=== PATIENT | male | born 1965 | race Caucasian/White ===

== ENCOUNTER → 2023-12-31 | Outpatient (CLI) | payer OTHER, SELFPAY ==
[2023-12-31 15:37] LABS: Absolute Lymphocyte Count 1.62 X10^3/uL (0.83-4.51); Absolute Neutrophil Count 3.9 X10^3/uL (2.0-7.7); Basophil# 0.03 X10^3/uL; Basophil% 0.5 % (0-1); Eosinophil# 0.12 X10^3/uL; Eosinophils% 1.8 % (0-5); Hematocrit 45.4 % (40-54); Hemoglobin 15.2 g/dL (13.0-16.5); Lymphocyte # 1.62 X10^3/ul (0.83-4.51); Lymphocyte % 24.5 % (19-41); Mean Corp Hgb Conc 33.5 g/dL (32-36); Mean Corpuscular Hgb 31.8 pg (27.0-32.0); Mean Platelet Vol. 11.5 fl (6.2-12.0); Monocyte# 0.92 X10^3/uL; Monocyte% 13.9 % (0-10); NRBC Flagged by Analyzer 0 % (0-5); Neutrophil # 3.91 X10^3/uL (2.7-7.7); Platelet Count 181 K/mm3 (150-450); RBC Distribution Width CV 12.4 % (11.6-14.6); RBC Distribution Width SD 43.8 fl (35.1-43.9); Red Blood Count 4.78 M/mm3 (4.6-6.2); White Blood Count 6.6 K/mm3 (4.4-11.0)
[2023-12-31 19:17] LABS: ALB/GLOB Ratio 1.4 RATIO (0.9-2.4); AST(SGOT) 29 U/L (15-37); Alanine Aminotransfer ALT/SGPT 72 U/L (16-61); Albumin, Serum 3.9 g/dL (3.2-5.0); Alkaline Phosphatase 64 U/L (45-117); Anion Gap 6 (5-15); BUN 19 mg/dL (7-18); BUN/Creat Ratio 20.5 RATIO (10-20); CRP < 2.90 mg/L (0.0-3.0); Calcium,Total 9.2 mg/dL (8.5-10.1); Chloride 108 mmol/L (98-107); Creatinine, Serum 0.93 mg/dL (0.70-1.30); EST Glomerular Filtration Rate 89 mL/min (>60); Est Glom Filt Rate - Afr Amer 107 mL/min (>60); Globulin 2.7 g/dL (2.2-4.2); Glucose 94 mg/dL (74-106); Potassium 4.3 mmol/L (3.5-5.1); Protein, Total 6.6 g/dL (6.4-8.2); Rheumatoid Factor < 10.0 IU/mL (<15); Sodium Level 141 mmol/L (136-145)
[2023-12-31 19:47] LABS: Erythrocyte Sedimentation Rate < 1 mm/hr (0-20)
[2023-12-31 19:48] LABS: Hepatitis B Surface Antibody Non-Reactive; Hepatitis B Surface Antigen Non-Reactive (Nonreactive); Hepatitis C Antibody Non-Reactive (Nonreactive)
--- OUTSIDE RECORDS SUMMARY | 2023-12-31 23:09 | XMS RPT_ITS | CCD ---
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 Name Role Phone Lily Osman Admitting Unavailable Lily Osman Attending Unavailable Lily Osman Primary Care Unavailable Lily Osman Admitting Unavailable Lily Osman Attending Unavailable Lily Osman Primary Care Unavailable Lily Osman Admitting Unavailable Lily Osman Attending Unavailable Lily Osman Primary Care Unavailable Lily Osman Unavailable Unavailable Lily Osman Unavailable Unavailable Lily Osman Unavailable Unavailable Lily Osman Unavailable Unavailable None, No PCP Unavailable Unavailable LILY OSMAN Admitting Unavailable FAITH MARADIAGA Attending Unavailable LILY OSMAN Referring Unavailable LILY OSMAN Primary Care Unavailable FAITH MARADIAGA Admitting Unavailable FAITH MARADIAGA Referring Unavailable LILY OSMAN Primary Care Unavailable FAITH MARADIAGA Attending Unavailable LILY OSMAN Primary Care Unavailable Lily Osman Primary Care Provider LILY OSMAN Primary Care Unavailable ALLY WASHINGTON Referring Unavailable JADA SILVA Attending Unavailable JADA SILVA Attending Unavailable JADA SILVA Referring Unavailable LILY OSMAN Primary Care Unavailable Lily Osman Primary Care Provider Kelly Arias Unavailable Unavailable Lily Osman Unavailable Unavailable Unavailable Unavailable Unavailable Dr. Lily Osman Referring Unavailable Dr. Jet Osmanie Primary Care Unavailable Niko, Dr. Becerril Attending Unavailable Niko, Dr. Becerril Primary Care Unavailable Niko, Dr. Becerril Attending Unavailable Niko, Dr. Becerril Referring Unavailable Niko, Dr. Becerril Referring Unavailable Niko, Dr. Becerril Primary Care Unavailable Niko, Dr. Becerril Attending Unavailable Niko, Dr. Becerril Referring Unavailable Niko, Dr. Becerril Primary Care Unavailable Niko, Dr. Becerril Attending Unavailable Niko, Dr. Lily Levy Primary Care Unavail able Niko, Dr. Lily Levy Attending Unavail able Niko, Dr. Lily Levy Attending Unavail able Niko, Dr. Lily Levy Primary Care Unavail able Niko, Dr. Lily Levy Attending Unavail able Niko, Dr. Lily Levy Primary Care Unavail glen Osman MD, Lily Hare Unavailable Lily Osman MD Primary Care Provider LILY OSMAN Attending LILY Rey Primary Care LILY Rey Attending LILY Rey Primary Care Unavailable LILY OSMAN Referring LILY Rey Primary Care LILY Rey Primary Care LILY Rey Primary Care Unavailable Medications Current Medications Medication Drug Class(es) Dates Sig (Normalized) Sig (Original) albuterol 90 mcg/actuation inhaler (4 sources) Start: 06-02-2020 albuterol 90 mcg/actuation inhaler INHALE 2 PUFFS BY MOUTH EVERY 4 6 HOURS NEEDED 0 06/02/2020 Active DOCOSAHEXANOIC ACID/EPA (FISH OIL ORAL) (5 sources) DOCOSAHEXANOIC ACID/EPA (FISH OIL ORAL) Take by mouth. 0 Active Fish Oils (2 sources) fish oil (Roggen- 3) 60-90-500 mg capsule Fish Oil OIL Refills: 0 Active 0 Active ibuprofen 200 mg oral capsule (20 sources) Nonsteroidal Anti-inflammatory Drug ibuprofen (Motrin) capsule Take by mouth. 0 Active Completed/Discontinued Medications Medication Drug Class(es) Dates Sig (Normalized) Sig (Original) [id number] actuat albuterol 0.09 mg/actuat metered dose inhaler (17 sources) beta2-Adrenergic Agonist Start: 02-04-2020 take 2 puff(s) by mouth every four to six hours as needed Albuterol Sulfate HFA 108 (90 Base) MCG/ACT Inhalation Aerosol Solution INHALE 2 PUFFS BY MOUTH EVERY 4-6 HOURS NEEDED Quantity: 1 Refills: 4 Ordered: 13-Apr-2021 Lily Osman MD Start : 04-Feb-2020 Active Problems Active Problems Problem Classification Problem Date Documented Date Episodic/Chronic Anxiety disorders (7 sources) Anxiety; Translations: [Other anxiety states] Chronic Esophageal disorders (20 sources) Gastroesophageal reflux disease; Translations: [Esophageal reflux] Onset: 3 03-20-2023 Chronic Essential hypertension (20 sources) Hypertensive disorder; Translations: [Unspecified essential hypertension] Onset: 3 03-20-2023 Chronic Genitourinary symptoms and ill-defined conditions (20 sources) H/O: urinary disease; Translations: [Personal history of other specified urinary system disorders] Episodic Immunizations and screening for infectious disease (20 sources) Patient encounter status; Translations: [Other specified vaccination] Episodic Osteoarthritis (1 source) Osteoarthritis of right knee joint; Translations: [Primary osteoarthritis of right knee] Other connective tissue disease (6 sources) Lateral epicondylitis of right humerus; Translations: [Lateral epicondylitis] Episodic Other liver diseases (8 sources) Steatosis of liver; Translations: [Other chronic nonalcoholic liver disease] Onset: 3 03-20-2023 Chronic Other liver diseases (2 sources) Fatty (change of) liver, not elsewhere classified; Translations: [Fatty (change of) liver, not elsewhere classified] Onset: 3 Chronic Other non-traumatic joint disorders (5 sources) Knee pain; Translations: [Chronic pain of right knee] Episodic Other non-traumatic joint disorders (2 sources) Metacarpophalangeal joint pain; Translations: [Pain in joints of right hand] 09-18-2023 Episodic Other non-traumatic joint disorders (4 sources) Pain in joints of right hand; Translations: [Pain in joints of right hand] Onset: 3 Episodic Other non-traumatic joint disorders (4 sources) Pain in joints of left hand; Translations: [Pain in joints of left hand] Onset: 3 Episodic Other non-traumatic joint disorders (1 source) Pain in right knee; Translations: [Right knee pain, unspecified chronicity] Other nutritional; endocrine; and metabolic disorders (18 sources) Obesity; Translations: [Obesity, unspecified] Chronic Other upper respiratory disease (20 sources) Allergic rhinitis; Translations: [Allergic rhinitis, cause unspecified] Onset: 3 03-20-2023 Chronic Other upper respiratory disease (1 source) Seasonal allergic rhinitis; Translations: [Other allergic rhinitis] 03-20-2023 Chronic Residual codes; unclassified (20 sources) Sleep apnea; Translations: [Unspecified sleep apnea] Onset: 3 03-20-2023 Chronic Residual codes; unclassified (20 sources) At risk of heart disease; Translations: [Other specified conditions influencing health status] Episodic Residual codes; unclassified (1 source) Statin declined; Translations: [Procedure and treatment not carried out because of patient's decision for unspecified reasons] 09-18-2023 Episodic Unclassified (1 source) Acute tear of medial meniscus of right knee; Translations: [Acute medial meniscus tear of right knee, initial encounter] Unclassified (5 sources) Chronic pain of right upper limb; Translations: [Chronic right shoulder pain] Onset: 7 01-25-2017 Unclassified (2 sources) Annual Exam; Translations: [Annual Exam] Onset: 3 Past or Other Problems Problem Classification Problem Date Documented Date Episodic/Chronic Abdominal hernia (20 sources) Hiatal hernia; Translations: [Umbilical hernia] Onset: 03-20-2023 03-20-2023 Episodic Cardiac dysrhythmias (10 sources) Palpitations; Translations: [Palpitations] Onset: 03-22-2022 Resolved: 09-18-2023 Episodic Other and unspecified benign neoplasm (20 sources) History of polyp of colon; Translations: [Personal history of colonic polyps] Onset: 03-20-2023 03-20-2023 Episodic Other lower respiratory disease (2 sources) Chronic cough; Translations: [Chronic cough] Episodic Other lower respiratory disease (11 sources) Nodule of lung; Translations: [Solitary pulmonary nodule] Onset: 03-20-2023 Resolved: 09-18-2023 03-20-2023 Episodic Other lower respiratory disease (4 sources) Solitary pulmonary nodule; Translations: [Solitary pulmonary nodule] Onset: 04-26-2022 Episodic Other non-traumatic joint disorders (2 sources) Chronic pain of right upper limb; Translations: [Pain in right shoulder] Onset: 01-25-2017 Resolved: 09-18-2023 03-20-2023 Episodic Spondylosis; intervertebral disc disorders; other back problems (2 sources) Herniation of nucleus pulposus of lumbar intervertebral disc; Translations: [Other intervertebral disc displacement, lumbar region] Onset: 10-15-2011 Resolved: 09-18-2023 03-20-2023 Chronic Spondylosis; intervertebral disc disorders; other back problems (20 sources) Chronic low back pain; Translations: [Lumbago] Onset: 10-15-2011 Resolved: 09-18-2023 03-20-2023 Episodic Unclassified (4 sources) Patient encounter status; Translations: [Encounter for colonoscopy in patient with family history of colon cancer] Unclassified (2 sources) Onset: 03-20-2023 03-20-2023 NEGATED: Highlighted row has not occurred!Residual codes; unclassified (20 sources) Disease Episodic Results Test Name Value Interpretation Reference Range Facil ity Vital Signs Date Time Vital Sign Value Performing Clinician Facility 09-18-2023 10:44-0500 Diastolic blood pressure 80 mm[Hg] Lily Osman MD Work Phone: [facility] 09-18-2023 10:44-0500 Systolic blood pressure 130 mm[Hg] Lily Osman MD Work Phone: [facility] 09-18-2023 10:12-0500 Body height 177.8 cm Lily Osman MD Work Phone: [facility] 09-18-2023 10:12-0500 Body mass index (BMI) [Ratio] 32 kg/m2 Lily Osman MD Work Phone: [facility] 09-18-2023 10:12-0500 Body weight 101.15 kg Lily Osman MD Work Phone: [facility] 09-18-2023 10:12-0500 Heart rate 76 /min Lily Osman MD Work Phone: [facility] 03-20-2023 09:58-0400 Body height 177.8 cm Lily Osman MD Work Phone: [facility] 03-20-2023 09:58-0400 Body mass index (BMI) [Ratio] 31.42 kg/m2 Lily Osman MD Work Phone: [facility] 03-20-2023 09:58-0400 Body weight 99.34 kg Lily Osman MD Work Phone: [facility] 03-20-2023 09:58-0400 Diastolic blood pressure 88 mm[Hg] Lily Osman MD Work Phone: [facility] 03-20-2023 09:58-0400 Heart rate 78 /min Lily Osman MD Work Phone: [facility] 03-20-2023 09:58-0400 SaO2% (BldA) [Mass fraction] 97 % Lily Osman MD Work Phone: [facility] 03-20-2023 09:58-0400 Systolic blood pressure 130 mm[Hg] Lily Osman MD Work Phone: [facility] 09-19-2022 09:10-0500 Body height 177.8 cm Lily Osman Work Phone: [facility] Work Phone: 09-19-2022 09:10-0500 Body mass index (BMI) [Ratio] 31.45 kg/m2 Lily Osman Work Phone: [facility] Work Phone: 09-19-2022 09:10-0500 Body surface area Derived from formula 2.17 m2 Lily Osman Work Phone: [facility] Work Phone: 09-19-2022 09:10-0500 Body weight 99.42 kg Lily Osman Work Phone: [facility] Work Phone: 09-19-2022 09:10-0500 Diastolic blood pressure 80 mm[Hg] Lily Osman Work Phone: [facility] Work Phone: 09-19-2022 09:10-0500 Heart rate 72 /min Lily Osman Work Phone: [facility] Work Phone: 09-19-2022 09:10-0500 Systolic blood pressure 132 mm[Hg] Lily Osman Work Phone: [facility] Work Phone: 03-21-2022 09:07-0400 Body height 177.8 cm Lily Osman Work Phone: [facility] 205 DO Work Phone: 03-21-2022 09:07-0400 Body mass index (BMI) [Ratio] 30.9 kg/m2 Lily Osman Work Phone: [facility] 205 DO Work Phone: 03-21-2022 09:07-0400 Body surface area Derived from formula 2.15 m2 Lily Osman Work Phone: [facility] 205 DO Work Phone: 03-21-2022 09:07-0400 Body weight 97.7 kg Lily Osman Work Phone: [facility] 205 DO Work Phone: 03-21-2022 09:07-0400 Diastolic blood pressure 72 mm[Hg] Lily Osman Work Phone: [facility] 205 DO Work Phone: 03-21-2022 09:07-0400 Heart rate 68 /min Lily Osman Work Phone: [facility] 205 DO Work Phone: 03-21-2022 09:07-0400 Systolic blood pressure 124 mm[Hg] Lily Osman Work Phone: [facility] 205 DO Work Phone: 11-21-2021 13:14-0500 Body height 177.8 cm Lily Osman Work Phone: [facility] Work Phone: 11-21-2021 13:14-0500 Body mass index (BMI) [Ratio] 31.92 kg/m2 Lily Osman Work Phone: [facility] Work Phone: 11-21-2021 13:14-0500 Body surface area Derived from formula 2.18 m2 Lily Osman Work Phone: [facility] Work Phone: 11-21-2021 13:14-0500 Body temperature 97.4 [degF] Lily Osman Work Phone: [facility] Work Phone: 11-21-2021 13:14-0500 Body weight 100.9 kg Lily Osman Work Phone: [facility] Work Phone: 11-21-2021 13:14-0500 Diastolic blood pressure 80 mm[Hg] Lily Osman Work Phone: [facility] Work Phone: 11-21-2021 13:14-0500 Heart rate 82 /min Lily Osman Work Phone: [facility] Work Phone: 11-21-2021 13:14-0500 SaO2% (BldA) [Mass fraction] 96 % Lily Osman Work Phone: [facility] Work Phone: 11-21-2021 13:14-0500 Systolic blood pressure 118 mm[Hg] Lily Osman Work Phone: [facility] Work Phone: 09-20-2021 08:56-0500 Systolic blood pressure 136 mm[Hg] Lily Osman Work Phone: [facility] 205 DO Work Phone: 09-20-2021 08:45-0500 Body height 177.8 cm Lily Osman Work Phone: [facility] 205 DO Work Phone: 09-20-2021 08:45-0500 Body mass index (BMI) [Ratio] 31.71 kg/m2 Lily Osman Work Phone: [facility] 205 DO Work Phone: 09-20-2021 08:45-0500 Body surface area Derived from formula 2.18 m2 Lily Osman Work Phone: [facility] 205 DO Work Phone: 09-20-2021 08:45-0500 Body temperature 96.9 [degF] Lily Osman Work Phone: [facility] 205 DO Work Phone: 09-20-2021 08:45-0500 Body weight 100.25 kg Lily Osman Work Phone: [facility] 205 DO Work Phone: 09-20-2021 08:45-0500 Diastolic blood pressure 86 mm[Hg] [facility] DO Work Phone: 09-20-2021 08:45-0500 Heart rate 60 /min Lily Osman Work Phone: [facility] 205 DO Work Phone: 09-20-2021 08:45-0500 Systolic blood pressure 136 mm[Hg] Lily Osman Work Phone: [facility] 205 DO Work Phone: 03-15-2021 11:49-0400 Body height 177.8 cm Lily Osman Work Phone: [facility] 205 DO Work Phone: 03-15-2021 11:49-0400 Body mass index (BMI) [Ratio] 31.6 kg/m2 Lily Osman Work Phone: [facility] 205 DO Work Phone: 03-15-2021 11:49-0400 Body surface area Derived from formula 2.17 m2 Lily Osman Work Phone: [facility] 205 DO Work Phone: 03-15-2021 11:49-0400 Body temperature 97.2 [degF] Lily Osman Work Phone: [facility] 205 DO Work Phone: 03-15-2021 11:49-0400 Body weight 99.91 kg Lily Osman Work Phone: [facility] 205 DO Work Phone: 03-15-2021 11:49-0400 Diastolic blood pressure 82 mm[Hg] Lily Osman Work Phone: [facility] 205 DO Work Phone: 03-15-2021 11:49-0400 Heart rate 68 /min Lily Osman Work Phone: [facility] 205 DO Work Phone: 03-15-2021 11:49-0400 Systolic blood pressure 130 mm[Hg] Lily Osman Work Phone: [facility] 205 DO Work Phone: 09-21-2020 13:01-0500 BMI (Body Mass Index) 30.46 kg/m2 Kellydipika Arias [facility] Work Phone: 09-21-2020 13:01-0500 Body weight 96.28 kg Kellydipika Islast [facility] Work Phone: 09-21-2020 13:01-0500 BP Diastolic 82 mm[Hg] Kelly Gahlawat [facility] Work Phone: 09-21-2020 13:01-0500 BP Systolic 166 mm[Hg] Klely Gahlawat [facility] Work Phone: 09-21-2020 13:01-0500 BSA (Body Surface Area) 2.14 m2 Kelly Deepawat [facility] Work Phone: 09-21-2020 13:01-0500 Height 177.8 cm Kelly Maximilianohlawat [facility] Work Phone: 09-21-2020 13:01-0500 Pulse (Heart Rate) 75 /min Kellydipika Arias [facility] Work Phone: 09-21-2020 13:01-0500 Pulse Oximetry 98 % Kellydipika Islast [facility] Work Phone: 09-05-2020 12:36-0500 BMI (Body Mass Index) 33.53 kg/m2 [facility] Work Phone: 09-05-2020 12:36-0500 Body Temperature 96.8 [degF] [facility] Work Phone: 09-05-2020 12:36-0500 Body weight 97.1 kg Kelly [facility] Work Phone: 09-05-2020 12:36-0500 BP Diastolic 80 mm[Hg] Kelly [facility]as [facility] Work Phone: Encounters Encounter Date Encounter Type Care Provider Facility Start: 09-18-2023 End: 09-19-2023 ambulatory LILY OSMAN [facility] Ambulatory Start: 09-18-2023 End: 09-18-2023 Office outpatient visit 25 minutes Lily Osman MD Work Phone: [facility] Procedures Date Procedure Procedure Detail Performing Clinician Start: 09-18-2023 JERED WITHOUT REFLEX ALLYN LILY OSMAN Start: 09-18-2023 C-reactive protein LILY OSMAN Start: 09-18-2023 RHEUMATOID FACTOR LILY OSMAN Start: 09-18-2023 XR HAND RIGHT 3+ VIEWS LILY OSMAN Start: 09-18-2023 XR HAND LEFT 3+ VIEWS LILY OSMAN Start: 09-10-2023 ALBUMIN, URINE RANDOM LILY OSMAN Start: 09-10-2023 MICROSCOPIC ONLY, URINE LILY OSMAN Start: 09-10-2023 CBC W Auto Differential panel - Blood LILY OSMAN Start: 09-10-2023 Comprehensive metabolic 2000 panel - Serum or Plasma LILY OSMAN Start: 09-10-2023 Hemoglobin A1c/Hemoglobin.total in Blood LILY OSMAN Start: 09-10-2023 Lipid panel LILY OSMAN Start: 09-10-2023 TESTOSTERONE,FREE AND TOTAL LILY OSMAN Start: 09-10-2023 TSH WITH REFLEX TO FREE T4 IF ABNORMAL LILY OSMAN Start: 09-10-2023 Lipid 1996 panel - Serum or Plasma Lily Osman MD Work Phone: Start: 11-22-2022 Lipid 1996 panel - Serum or Plasma Lily Osman MD Work Phone: Start: 10-07-2020 Mri any jt lower extrem w/o contrast matrl External Transcribed Start: 10-05-2020 Colonoscopy Lily Osman MD Work Phone: Start: 05-30-2020 Arthrocentesis Faith Maradiaga Work Phone: Start: 05-05-2020 Xray Knee Complete 4 or more View Lily Osman Colonoscopy Lily Osman Esophagogastroduodenoscopy Dominic Osman Repair of shoulder Lily campbell Repair of umbilical hernia Dominic Osman Work Phone: Vasectomy Lily Osman Plan of Treatment Date Care Activity Detail Author Start: 10-05-2030 Screening for malignant neoplasm of colon [facility] Start: 09-10-2028 Lipid panel Lipid Panel [facility] Start: 09-11-2027 Lipid panel Lipid Panel [facility] Start: 03-18-2024 End: 09-18-2024 Basic metabolic 2000 panel - Serum or Plasma Basic Metabolic Panel Lab Routine Primary hypertension Expected: 03/18/2024 (Approximate), Expires: 09/18/2024 [facility] Work Phone: Immunizations Immunization Date Immunization Notes Care Provider Nhaid motta 09-05-2020 influenza, injectabl e, quadrivalent, preservative free; Translations: [Flulaval Quadrivalent 0.5 ML Intramuscular Suspension Prefilled Syringe] Kelly Arias [facility] Work Phone: Payers Date Payer Category Payer Private Health Insurance [id number] 2019 Private Health Insurance [id number] 2019 Private Health Insurance [id number] 2019 Private Health Insurance [employer] OPEN ACCESS MANAGED CHOICE xxxxxxxxxx 2019-Present xxxxxxxxxx [id number] 2018 Private Health Insurance 1965 Unknown [id number] [id number] .717 1964 Unknown [id number] [id number] .717 1964 Unknown [id number] 2.16840.1.025761.3.579.2 .71 1964 Unknown [id number] 2.16.840.1.920185.3.579.2 .903 1964 Unknown [id number] 2.840.1.129955.3.579.2 .90 1964 Unknown [id number] 2.840.1.970971.3.579.2 .90 1964 Unknown [id number] 2.840.1.053381.3.579.2 .1964 Unknown [id number] 2.840.1.709130.3.579.2 .903 1964 Unknown [id number] 2.840.1.124433.3.579.2 .356 1964 Unknown [id number] 2.840.1.711053.3.579.2 .356 1964 Unknown [id number] 2.840.1.872930.3.579.2 .356 1964 Unknown [id number] 2.16840.1.526055.3.579.2 .356 1964 Unknown [id number] 2.16840.1.550134.3.579.2 .1069 1964 Unknown [id number] 2.16840.1.938836.3.579.2 .1069 1964 Unknown [id number] 2.16840.1.031559.3.579.2 .1069 1964 Unknown [id number] 2.16840.1.442490.3.579.2 .1244 1964 Unknown [id number] 2.16.840.1.120722.3.579.2 .1244 1964 Unknown [id number] 2.16.840.1.125266.3.579.2 .1243 1964 Unknown [id number] 2.16.840.1.933092.3.579.2 .1243 1964 Unknown [id number] 2.16.840.1.942055.3.579.2 .1245 1964 Unknown [id number] [id number] .1245 Unknown Social History Date Type Detail Facility Assertion Unknown if ever smoked [facility] Work Phone: Start: 05-30-2020 End: 06-29-2020 Tobacco smoking status OKIS Former smoker [facility] Start: 06-29-2020 Tobacco use and exposure Never used [facility] Start: 05-30-2020 End: 06-29-2020 Alcohol intake Current drinker of alcohol (finding) [facility] Start: 1965 Sex Assigned At Not on file [facility] Start: 03-10-2023 End: 09-18-2023 Exposure to SARS-CoV-2 (event) Not sure [facility] Start: 03-20-2023 End: 09-18-2023 Does not have living will Does not have living will [facility] 205 DO Work Phone: Start: 03-20-2023 Tobacco smoking status NHIS Never smoked tobacco [facility] Work Phone: Start: 03-20-2023 Tobacco use and exposure Former smokeless tobacco user [facility] Work Phone: Start: 03-20-2023 End: 09-18-2023 Tobacco use panel [facility] Work Phone: NEGATED: Highlighted row - - [facility] Work Phone: Medical Equipment Procedure Code Equipment Code Equipment Origin al Text Equipment Identifier Dates Patch, Mesh, Mar beth, 3 X 6 In, Polypropylene Case [id number] Start: 10-25-2020 Functional Status Date Assessment Result Facility NEGATED: Highlighted row Functional performance Functional status health issues are not documented Disease [facility] Work Phone: Mental Status Date Assessment Result Facility NEGATED: Highlighted row Cognitive function [Interpretation] Cognitive status health issues are not documented Disease [facility] Work Phone: Clinical Notes 09-19-2019 to 09-18-2023 Carolina Steve LPN - 09/18/2023 10:20 AM ESTLily Osman MD - 09/18/2023 10:20 AM ESTPatient InstructionsTrakulwant Llamas CMA - 03/20/2023 9:40 AM EDTLily Osman MD - 03/20/2023 9:40 AM EDT Note Date & Type Note Facility 09-18-2023 History of Presen t illness Narrative Med check; labs Patient presents for periodic surveillance of chronic medical problems. Subjective Brigid Fenton is a 58 y.o. male who presents for Annual Exam. HPI Htn, stable 10 year risk, candidate for statin, declines for now Bilateral hand pain for at least a year getting worse, is worse in the morning, but lasts all day long, extremely painful Primarily at mcps Seasonal allergies, stable Review of Systems. Objective Visit Vitals BP 130/80 Pulse 76 Physical Exam Vitals and nursing note reviewed. Constitutional: General: He is not in acute distress. Appearance: Normal appearance. He is not toxic-appearing. HENT: Head: Normocephalic and atraumatic. Cardiovascular: Rate and Rhythm: Normal rate and regular rhythm. Heart sounds: No murmur heard. Pulmonary: Effort: Pulmonary effort is normal. Breath sounds: Normal breath sounds. Musculoskeletal: Cervical back: Neck supple. No rigidity. Comments: Skin: General: Skin is warm and dry. Neurological: General: No focal deficit present. Mental Status: He is alert and oriented to person, place, and time. Psychiatric: Mood and Affect: Mood normal. Behavior: Behavior normal. Assessment/Plan Problem List Items Addressed This Visit Hypertension Relevant Orders Basic Metabolic Panel Hemoglobin A1C Other Visit Diagnoses Metacarpophalangeal joint pain of right hand - Primary Relevant Medications methylPREDNISolone (Medrol Dospak) 4 mg tablets Other Relevant Orders Rheumatoid factor C-reactive protein JERED XR hand right 3+ views XR hand left 3+ views Metacarpophalangeal joint pain of left hand Relevant Medications methylPREDNISolone (Medrol Dospak) 4 mg tablets Other Relevant Orders Rheumatoid factor C-reactive protein JERED XR hand right 3+ views XR hand left 3+ views Statin declined Lily Osman MD documented in this encounter [facility] Work Phone: 09-18-2023 Instructions Lily Osman MD - 09/18/2023 10:20 AM EST Anticipate rheumatology, will get workup started. Call concerns, routine followup 6 mos, labs prior. documented in this encounter [facility] Work Phone: 03-20-2023 History of Presen t illness Narrative Subjective Patient ID: Brigid Fenton is a 57 y.o. male who presents for routine 6 mo check up; med review and refills. HPI Review of Systems Objective Vitals: 03/20/23 0958 BP: 130/88 BP Location: Right arm Pulse: 78 SpO2: 97% Weight: 99.3 kg (219 lb) Height: 1.778 m (5' 10 ) Physical Exam Assessment/Plan There are no diagnoses linked to this encounter. Patient presents for periodic surveillance of chronic medical problems. Subjective Brigid Fenton is a 57 y.o. male who presents for No chief complaint on file.. HPI Htn, getting high normal readings at home. Discussed adding another medication versus lifestyle changes. Hepatic steatosis, on imaging of chest, labs have been normal, reviewed progression to cirrhosis in some cases and the difficulty in predicting that. Discussed adding a few hours a day to his fasting time, less processed food, and more whole foods, with goal over time to be 10 percent body weight loss . He's already walking several miles most days which is great. GERD, stable Review of Systems All other systems reviewed and are negative. . Objective Visit Vitals BP 130/88 (BP Location: Right arm) Pulse 78 Physical Exam Vitals and nursing note reviewed. Constitutional: General: He is not in acute distress. Appearance: Normal appearance. He is not toxic-appearing. HENT: Head: Normocephalic and atraumatic. Right Ear: External ear normal. Cardiovascular: Rate and Rhythm: Normal rate and regular rhythm. Heart sounds: No murmur heard. Pulmonary: Effort: Pulmonary effort is normal. Breath sounds: Normal breath sounds. Musculoskeletal: Cervical back: Neck supple. No rigidity. Comments: Skin: General: Skin is warm and dry. Neurological: General: No focal deficit present. Mental Status: He is alert and oriented to person, place, and time. Psychiatric: Mood and Affect: Mood normal. Behavior: Behavior normal. Assessment/Plan Problem List Items Addressed This Visit Circulatory Hypertension Relevant Medications losartan (Cozaar) 100 mg tablet Other Relevant Orders CBC and Auto Differential Comprehensive Metabolic Panel TSH with reflex to Free T4 if abnormal Lipid Panel Hemoglobin A1C Urinalysis Microscopic Only Albumin , Urine Random Testosterone, total and free Digestive GERD (gastroesophageal reflux disease) Relevant Medications omeprazole (PriLOSEC) [address] capsule Hepatic steatosis - Primary Relevant Orders Hemoglobin A1C Lily Osman MD documented in this encounter [facility] Work Phone: 11-19-2021 History of Presen t illness Narrative Tk presents with concerns of elevated bp. GOt a bp cuff and has been monitoring at home, brings log,which I reviewed and will scan in chart. 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 Has had frontal area pressure since having covid in September ( positive test 10/17.We checked his bp here and we're getting lower readings than he's getting at home, and that he got today. REcheck myself large cuff seated left arm got 130/72.We opted to leave meds as they are, and he is going to look into getting new batteries and adjusting the way he takes his bp and go from there.We talked briefly about anxiety as well, for now not interested in daily treatment, will monitor. [facility] Work Phone: 09-19-2019 History of Presen t illness Narrative Pt presents for periodic surveillance of chronic medical problems.Has occasional flares of left sciatica which are worse with prolonged sitting/driving. Massage helps. Has had previous back surgery. Reviewed red flags to watch for. Declines steroid course for now. Uses tramadol sparingly for severe flares, last script was three years ago. Aware of risks and side effects and oarrs appropriate.HTn, stableHyperliipdemia, improved quite a bitHepatic steatosis, was on ct chest, discussed healthy diet/role of insulinGERD, stableDeclines influenza vaccine [facility] Work Phone: documented in this encounter [facility] Work Phone: Evaluation note* Diagnosis Metacarpophalangeal joint pain of right hand- Primary Metacarpophalangeal joint pain of left hand Primary hypertension Unspecified essential hypertension Statin declined documented in this encounter [facility] Work Phone: History of Present illness Narrative* Tk presents today for periodic surveillance of chronic medical problems. * Allergic rhinitis, stable on current regimen * Sleep apnea, has been stable * Chronic low back pain, currentlys table * GERD< stable on current regimen * HTN, stable on current regimen * Just had colonoscopy, five year followup advised, and had ventral hernia repair with no issues. * About of month of right elbow pain, was medial, now lateral with certain movements. 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 RIght hand dominant. [facility] 205 DO Work Phone: History of Present illness Narrative* Tk presents for periodic surveillance of chronic medical problems. * Since last seen his youngest daughter Millie had cardiac arrest felt due to viral myocarditis and that has been extremely stressful. * Sleep apnea, compliant with cpap * Chronic low back pain, gets acute exacerbation with travel, and takes tramadol for prn use with this. Aware of risks, habit forming nature, Oarrs reviewed and appropriate. * Anxiety when flying, states last time he almost had to get off the plane before take off, wondered about something to help with that . Recommend trial of hydroxyzine prn, not with tramadol and call concerns. * GERD, stable on medication * HTN,s table * 10 year risk over 7.5 percent, discussed guidelines for statin and he is a candidate, risks benefits , he declines for now, no symptoms so we discussed a ct calcium score to help further delineate his risk. [facility] 205 DO Work Phone: History of Present illness Narrative* Tk presents for periodic surveillance of chronic medical problems. * Allergic rhinitis, flared this time of year * GERD, stable * Lung nodule, had screening ct calcium score this winter, score in the 20s. Had 2.8 mm left lung density radiologist recommended dedicated ct chest, his insurance at the time wouldn't cover, so we opted to try a six month [address]. He has different insurance now. * HTN, stable well controlled, monitors at home, average readings 120-130/80's. * Has noticed some occasional palpitations, not daily, not at night or with exertion, no chest pain, last less than a minute, describes as a flutter. Walks two miles a day and no symptoms interfering with that. [facility] 205 DO Work Phone: History of Present illness Narrative* Tk presents for periodic surveillance of chronic medical problems. * Allergic rhinitis, flared this time of year * GERD, stable * Lung nodule, had screening ct calcium score this winter, score in the 20s. Had 2.8 mm left lung density radiologist recommended dedicated ct chest, his insurance at the time wouldn't cover, so we opted to try a six [address]. He has different insurance now. * HTN, stable well controlled, monitors at home, average readings 120-130/80's. * Has noticed some occasional palpitations, not daily, not at night or with exertion, no chest pain, last less than a minute, describes as a flutter. Walks two miles a day and no symptoms interfering with that. [facility] Work Phone: Summary Purpose Family History No Family History Records Found Father Name Dates Details Family history of malignant neoplasm of colon(V16.0, Z80.0) Status:Active Sister Name Dates Details Family history of kidney dis ease(V18.69, Z84.1) Status:Active Father Name Dates Details Family history of malignant neoplasm of colon(V16.0, Z80.0) Status:Active Sister Name Dates Details Family history of kidney dis ease(V18.69, Z84.1) Status:Active Father Name Dates Details Family history of malignant neoplasm of colon(V16.0, Z80.0) Status:Active Sister Name Dates Details Family history of kidney dis ease(V18.69, Z84.1) Status:Active Father Name Dates Details Family history of malignant neoplasm of colon(V16.0, Z80.0) Status:Active Sister Name Dates Details Family history of kidney dis ease(V18.69, Z84.1) Status:Active Unknown Family Member Name Dates Details Family history of malignant neoplasm of colon: Father(V16.0, Z80.0) Status:Active Family history of kidney dis ease: Sister(V18.69, Z84.1) Status:Active Unknown Family Member Name Dates Details Family history of malignant neoplasm of colon: Father(V16.0, Z80.0) Status:Active Family history of kidney dis ease: Sister(V18.69, Z84.1) Status:Active Unknown Family Member Name Dates Details Family history of malignant neoplasm of colon: Father(V16.0, Z80.0) Status:Active Family history of kidney dis ease: Sister(V18.69, Z84.1) Status:Active Unknown Family Member Name Dates Details Family history of malignant neoplasm of colon: Father(V16.0, Z80.0) Status:Active Family history of kidney dis ease: Sister(V18.69, Z84.1) Status:Active Unknown Family Member Name Dates Details Family history of malignant neoplasm of colon: Father(V16.0, Z80.0) Status:Active Family history of kidney dis ease: Sister(V18.69, Z84.1) Status:Active Unknown Family Member Name Dates Details Family history of kidney dis ease: Sister(V18.69, Z84.1) Status:Active Family history of malignant neoplasm of colon: Father(V16.0, Z80.0) Status:Active Unknown Family Member Name Dates Details Family history of kidney dis ease: Sister(V18.69, Z84.1) Status:Active Family history of malignant neoplasm of colon: Father(V16.0, Z80.0) Status:Active Unknown Family Member Name Dates Details Family history of kidney dis ease: Sister(V18.69, Z84.1) Status:Active Family history of malignant neoplasm of colon: Father(V16.0, Z80.0) Status:Active Unknown Family Member Name Dates Details Family history of malignant neoplasm of colon: Father(V16.0, Z80.0) Status:Active Family history of kidney dis ease: Sister(V18.69, Z84.1) Status:Active Unknown Family Member Name Dates Details Family history of malignant neoplasm of colon: Father(V16.0, Z80.0) Status:Active Family history of kidney dis ease: Sister(V18.69, Z84.1) Status:Active Unknown Family Member Name Dates Details Family history of malignant neoplasm of colon: Father(V16.0, Z80.0) Status:Active Family history of kidney dis ease: Sister(V18.69, Z84.1) Status:Active Unknown Family Member Name Dates Details Family history of malignant neoplasm of colon: Father(V16.0, Z80.0) Status:Active Family history of kidney dis ease: Sister(V18.69, Z84.1) Status:Active Unknown Family Member Name Dates Details Family history of malignant neoplasm of colon: Father(V16.0, Z80.0) Status:Active Family history of kidney dis ease: Sister(V18.69, Z84.1) Status:Active Unknown Family Member Name Dates Details Family history of malignant neoplasm of colon: Father(V16.0, Z80.0) Status:Active Family history of kidney dis ease: Sister(V18.69, Z84.1) Status:Active Unknown Family Member Name Dates Details Family history of kidney dis ease: Sister(V18.69, Z84.1) Status:Active Family history of malignant neoplasm of colon: Father(V16.0, Z80.0) Status:Active Unknown Family Member Name Dates Details Family history of malignant neoplasm of colon: Father(V16.0, Z80.0) Status:Active Family history of kidney dis ease: Sister(V18.69, Z84.1) Status:Active Unknown Family Member Name Dates Details Family history of malignant neoplasm of colon: Father(V16.0, Z80.0) Status:Active Family history of kidney dis ease: Sister(V18.69, Z84.1) Status:Active Unknown Family Member Name Dates Details Family history of kidney dis ease: Sister(V18.69, Z84.1) Status:Active Family history of malignant neoplasm of colon: Father(V16.0, Z80.0) Status:Active Unknown Family Member Name Dates Details Family history of malignant neoplasm of colon: Father(V16.0, Z80.0) Status:Active Family history of kidney dis ease: Sister(V18.69, Z84.1) Status:Active Advance Directives No Advanced Directives Records FoundDocuments on File Type Date Recorded 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 Design Assembler Expl 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 Advance Directives and Living Will Documents on File Type Date Recorded 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 Design 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 He received an injection to the right knee about 3 weeks ago and has had absolutely no relief of pain and swelling. He is here today to discuss the next treatment option. He denies any new injury to the knee. The patient's past medical history, surgical history, social history, family history, medications and allergies were reviewed with the patient today and are available in the chart for further review. No Known Allergies Current Outpatient Medications: albuterol 90 mcg/actuation inhaler, INHALE 2 PUFFS BY MOUTH EVERY 4 6 HOURS NEEDED, Disp: , Rfl: DOCOSAHEXANOIC ACID/EPA (FISH OIL ORAL), Take by mouth., Disp: , Rfl: loratadine (CLARITIN) 10 mg tablet, Take 10 mg by mouth daily ., Disp: , Rfl: losartan potassium (LOSARTAN ORAL), Take by mouth ., Disp: , Rfl: mometasone (NASONEX) 50 mcg/actuation nasal spray, USE 1 TO 2 SPRAYS IN EACH NOSTRIL ONCE DAILY., Disp: , Rfl: montelukast (SINGULAIR) 10 mg tablet, , Disp: , Rfl: multivitamin (multivitamin) per tablet, Take 1 tablet by mouth daily., Disp: , Rfl: omeprazole (PRILOSEC) 20 MG capsule, Take 20 mg by mouth 2 (two) times a day., Disp: , Rfl: 3 Past Medical History: Diagnosis Date High cholesterol Hypertension Past Surgical History: Procedure Laterality Date BACK SURGERY SHOULDER SURGERY Right Social History Socioeconomic History Marital status: Spouse name: Not on file Number of children: Not on file Years of education: Not on file Highest education level: Not on file Occupational History Not on file Social Needs Financial resource strain: Not on file Food insecurity Worry: Not on file Inability: Not on file Transportation needs Medical: Not on file Non-medical: Not on file Tobacco Use Smoking status: Former Smoker Smokeless tobacco: Never Used Substance and Sexual Activity Alcohol use: Yes Drug use: Not on file Sexual activity: Not on file Lifestyle Physical activity Days per week: Not on file Minutes per session: Not on file Stress: Not on file Relationships Social connections Talks on phone: Not on file Gets together: Not on file Attends episcopal service: Not on file Active member of club or organization: Not on file Attends meetings of clubs or organizations: Not on file Relationship status: Not on file Other Topics Concern Not on file Social History Narrative Not on file ROS: Review of Systems Constitutional: Negative for activity change and fatigue. HENT: Negative for congestion, hearing loss and trouble swallowing. Eyes: Negative for visual disturbance. Respiratory: Negative for chest tightness and shortness of breath. Cardiovascular: Negative for chest pain and palpitations. Gastrointestinal: Negative for abdominal pain, diarrhea, nausea and vomiting. Endocrine: Negative for polydipsia, polyphagia and polyuria. Genitourinary: Negative for decreased urine volume, difficulty urinating and hematuria. Musculoskeletal: Positive for arthralgias and joint swelling. Negative for myalgias. Skin: Negative for color change, rash and wound. Allergic/Immunologic: Negative for immunocompromised state. Neurological: Negative for dizziness, weakness, light-headedness and numbness. Hematological: Does not bruise/bleed easily. Psychiatric/Behavioral: Negative for confusion and sleep disturbance. The patient is not nervous/anxious. PE: Physical Exam Constitutional: He is oriented to person, place, and time. He appears well- developed and well-nourished. HENT: Head: Normocephalic. Eyes: Pupils are equal, round, and reactive to light. Neck: Normal range of motion. Neck supple. Cardiovascular: Normal rate and regular rhythm. Pulmonary/Chest: Effort normal and breath sounds normal. Abdominal: Soft. Bowel sounds are normal. Musculoskeletal: General: Tenderness and edema present. Right knee: He exhibits decreased range of motion and swelling. He exhibits no effusion. Neurological: He is alert and oriented to person, place, and time. Skin: Skin is warm and dry. ORTHO: Right Knee Exam Range of Motion Extension: normal Flexion: abnormal Tests Jeff: Medial - positive Lateral - positive Varus: negative Valgus: negative Bryant: Anterior - negative Drawer: Anterior - negative Posterior - negative Other Erythema: absent Scars: absent Sensation: normal Pulse: present Swelling: mild Effusion: no effusion present Imaging: No new imaging, reviewed from prior visit. Assessment/Plan: After examination, I am going to order a MRI for further diagnostic evaluation of a meniscal tear. I will see him back for his results. The patient is to continue OTC pain relievers as needed. He verbalizes understanding and is in agreement with this treatment plan. documented in this encounter* Veronica Bernstein LPN - 07/06/2020 9:01 AM EDT MRI was denied thru patients insurance. Spoke with the provider Faith would like to get him going in PT, he will need a follow up with her after that is complete. [facility] sent. I will await to see where he wants to go for PT. documented in this encounter* Faith Maradiaga CNP - 05/30/2020 11:41 AM EDT Associated Order(s): LG Jt Injection/Arthrocentesis: R knee Post-Procedure Diagnose(s): Primary osteoarthritis of right knee LG Jt Injection/Arthrocentesis: R knee Performed by: Faith Maradiaga CNP Authorized by: Faith Maradiaga CNP CPT 45052 - Large Joint Arthrocentesis: Consent given by: Patient Time out: Immediately prior to the procedure a time out was called Physician or proceduralist has discussed critical or nonroutine steps, procedure duration and anticipated blood loss: Yes Supporting Documentation: Indications: Pain, joint swelling and diagnostic evaluation Procedure Details: Location: Knee Site: R knee Prep: patient was prepped and draped in usual sterile fashion Needle size: 22 G Approach: Anterolateral Medications: 40 mg triamcinolone acetonide 40 mg/mL Anesthetic used: Lidocaine 1% Anesthetic amount (mL): 2 Patient tolerance: Patient tolerated the procedure well with no immediate complications * Faith Maradiaga CNP - 05/27/2020 12:45 PM EDT Brigid Gloria Fenton 1965 CC: 55 y.o. is a he with right knee pain. Chief Complaint Patient presents with Right Knee - Pain . HPI: Knee Pain: The patient presents with right knee pain that seemed to start this past [place] after he was treated for cellulitis in the right knee. He states that he was treated and felt better but there was then pain, mostly in the back of the knee and it just hasn't gone away. He has tried RICE therapy but the knee just isn't the same. He denies any instability, denies any significant swelling.He denies any locking up of the knee. He does state he has pain with certain activities and movements, stairs are at times painful. He takes OTC pain medications which do seem to take the edge off. He hasn't had any type of physical therapy nor had any injections for the knee. PMH: No Known Allergies Current Outpatient Medications: DOCOSAHEXANOIC ACID/EPA (FISH OIL ORAL), Take by mouth., Disp: , Rfl: loratadine (CLARITIN) 10 mg tablet, Take 10 mg by mouth daily ., Disp: , Rfl: losartan potassium (LOSARTAN ORAL), Take by mouth ., Disp: , Rfl: multivitamin (multivitamin) per tablet, Take 1 tablet by mouth daily., Disp: , Rfl: omeprazole (PRILOSEC) 20 MG capsule, Take 20 mg by mouth 2 (two) times a day., Disp: , Rfl: 3 Past Medical History: Diagnosis Date High cholesterol Hypertension Past Surgical History: Procedure Laterality Date BACK SURGERY SHOULDER SURGERY Right Social History Socioeconomic History Marital status: Spouse name: Not on file Number of children: Not on file Years of education: Not on file Highest education level: Not on file Occupational History Not on file Social Needs Financial resource strain: Not on file Food insecurity Worry: Not on file Inability: Not on file Transportation needs Medical: Not on file Non-medical: Not on file Tobacco Use Smoking status: Former Smoker Smokeless tobacco: Never Used Substance and Sexual Activity Alcohol use: Yes Drug use: Not on file Sexual activity: Not on file Lifestyle Physical activity Days per week: Not on file Minutes per session: Not on file Stress: Not on file Relationships Social connections Talks on phone: Not on file Gets together: Not on file Attends episcopal service: Not on file Active member of club or organization: Not on file Attends meetings of clubs or organizations: Not on file Relationship status: Not on file Other Topics Concern Not on file Social History Narrative Not on file The patient's past medical history, surgical history, social history, family history, medications and allergies were reviewed with the patient today and are available in the chart for further review. ROS: Review of Systems Constitutional: Negative for activity change and fatigue. HENT: Negative for congestion, hearing loss and trouble swallowing. Eyes: Negative for visual disturbance. Respiratory: Negative for chest tightness and shortness of breath. Cardiovascular: Negative for chest pain and palpitations. Gastrointestinal: Negative for abdominal pain, diarrhea, nausea and vomiting. Endocrine: Negative for polydipsia, polyphagia and polyuria. Genitourinary: Negative for decreased urine volume, difficulty urinating and hematuria. Musculoskeletal: Positive for arthralgias and gait problem. Negative for joint swelling and myalgias. Skin: Negative for color change, rash and wound. Allergic/Immunologic: Negative for immunocompromised state. Neurological: Negative for dizziness, weakness, light-headedness and numbness. Hematological: Does not bruise/bleed easily. Psychiatric/Behavioral: Negative for confusion and sleep disturbance. The patient is not nervous/anxious. PE: Physical Exam Constitutional: He is oriented to person, place, and time. He appears well- developed and well-nourished. HENT: Head: Normocephalic. Eyes: Pupils are equal, round, and reactive to light. Neck: Normal range of motion. Neck supple. Cardiovascular: Normal rate and regular rhythm. Pulmonary/Chest: Effort normal and breath sounds normal. Abdominal: Soft. Bowel sounds are normal. Musculoskeletal: Normal range of motion. General: Tenderness present. Right knee: He exhibits no effusion. Tenderness found. Medial joint line and lateral joint line tenderness noted. Neurological: He is alert and oriented to person, place, and time. Skin: Skin is warm and dry. ORTHO: Right Knee Exam Tenderness The patient is experiencing tenderness in the lateral joint line and medial joint line. Range of Motion The patient has normal right knee ROM. Tests Jeff: Medial - positive Lateral - negative Varus: negative Valgus: negative Bryant: Anterior - negative Drawer: Anterior - negative Posterior - negative Other Erythema: absent Scars: absent Sensation: normal Pulse: present Swelling: none Effusion: no effusion present Imaging:R Knee No acute osseous abnormality. Mild medial compartment osteoarthrosis. Assessment/Plan: After examination and reviewing of x-ray images, I offered the patient a cortisoneinjection which he gladly accepted. I did this without complications and he tolerated this well. I encouraged him to continue the OTC pain relievers as needed and to also use RICE. The patient, if there is no improvement after the injection, will return to the office for follow up. The patient verbalizes understanding and is in agreement with the treatment plan. I will see him back as needed. Diagnosis: Problem List Items Addressed This Visit None Visit Diagnoses Right knee pain, unspecified chronicity Follow Up: No follow-ups on file. Faith Maradiaga CNP documented in this encounter Assessments Diagnosis Acute medial meniscus tear of right knee, initial encounter- Primary Diagnosis Chronic pain of right knee Diagnosis Right knee pain, unspecified chronicity Primary osteoarthritis of right knee Diagnosis Chronic pain of right knee Reason for Referral Status Reason Specialty Diagnoses / Procedures Referre d By Contact Referred To Contact Closed Radiology Diagnoses Chronic pain of right knee Procedures MR Knee Right Without Contrast Jada Silva MD [address] [place] [address] Specialty Diagnoses / Procedures Referred By Contac t Referred To Contact Radiology Diagnoses Metacarpophalangeal joint pain of right hand Metacarpophalangeal joint pain of left hand Procedures XR hand left 3+ views Lily Osman MD [address] [facility] [place] [address] Referral ID Status Reason Start Date Expiration Date Visits Requested Visits Authorized [id number] Authorized Perform Procedure 3 09/17/2024 1 1 Specialty Diagnoses / Procedures Referred By Carmelo t Referred To Contact Radiology Diagnoses Metacarpophalangeal joint pain of right hand Metacarpophalangeal joint pain of left hand Procedures XR hand right 3+ views Lily Osman MD [address] [facility] [place] [address] Referral ID Status Reason Start Date Expiration Date Visits Requested Visits Authorized [id number] Authorized Perform Procedure 3 09/17/2024 1 1 Chief Complaint Chief Complaint: BRIGID FENTON is here with a chief complaint of check up. No concerns. Had recent colonoscoyp.Chief Complaint: BRIGID FENTON is here with a chief complaint of HERE FOR MED CHECK; F/U LABS; WONDERS IF [facility] WOULD GIVE HIM AN RX FOR TRAMADOL FOR BACK PAIN FOR WHEN HE TRAVELS.Pt presents with c/o elevated BP readings.Chief Complaint: BRIGID FENTON is here with a chief complaint of 6 month check. No concerns.Chief Complaint: BRIGID FENTON is here with a chief complaint of 6 month check. No concerns.Chief Complaint: BRIGID FENTON is here with a chief complaint of 1 month check with labs. No concerns . Additional Source Comments (unrecognized sect ion and content) No Status Records FoundNo Status Records FoundNo Status Records FoundNo Status Records FoundNo Status Records FoundNo Status Records FoundNo Status Records FoundNo Status Records FoundNo Status Records Found INFORMATION SOURCE (unrecogn ized section and content) DATE CREATED AUTHOR AUTHOR'S ORGANIZ ATION 06/29/2020 [facility] DATE CREATED AUTHOR AUTHOR'S ORGANIZ ATION 10/08/2020 [facility] DATE CREATED AUTHOR AUTHOR'S ORGANIZ ATION 09/19/2022 [facility] DATE CREATED AUTHOR AUTHOR'S ORGANIZ ATION 09/19/2022 [employer] DATE CREATED AUTHOR AUTHOR'S ORGANIZ ATION 12/19/2022 [facility] DATE CREATED AUTHOR AUTHOR'S ORGANIZ ATION 09/20/2023 [facility] DATE CREATED AUTHOR AUTHOR'S ORGANIZ ATION 09/24/2023 [facility] DATE CREATED AUTHOR AUTHOR'S ORGANIZ ATION 09/24/2023 [facility] Reason for Visit (unrecogniz ed section and content) Reason Comments Pain Status Reason Specialty Diagnoses / Procedures Referred By Contact Referred To Contact Closed Sports Medicine Diagnoses Right knee pain, unspecified chronicity Lily Osman MD [address] [place] [address] Faith Maradiaga, [employer] [address] [place] [address] Status Reason Specialty Diagnoses / Procedures Referre d By Contact Referred To Contact Closed Radiology Diagnoses Chronic pain of right knee Procedures MR Knee Right Without Contrast Jada Silva MD [address] [place] [address] Reason Comments Annual Exam Care Teams (unrecognized sec tion and content) [employer]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 This clinical summary was aggregated from multiple sources. Caution should be exercised in using it in the provision of clinical care. This summary normalizes information from multiple sources, and as a consequence, information in this document may materially change the coding, format and clinical context of patient data. In addition, data may be omitted in some cases. CLINICAL DECISIONS SHOULD BE BASED ON THE PRIMARY CLINICAL RECORDS. [facility]. provides no warranty or guarantee of the accuracy or completeness of information in this document.
[2024-01-02 12:09] LABS: CCP IgG Antibodies 2 units (0-19)
== END | disposition home or self-care (01) ==
LOC: MTLAB 10:02
PROVIDERS: PCP Family Medicine; Referring Provider Internal Medicine Rheumatology; Visit Provider Internal Medicine Rheumatology
DX: M06.4 Inflammatory polyarthropathy (principal); I10 Essential (primary) hypertension; E78.5 Hyperlipidemia, unspecified; K76.0 Fatty (change of) liver, not elsewhere classified
CPT/HCPCS: 36415; 80053; 85025; 85652; 86140; 86200; 86431; 86706; 86803; 87340